=== PATIENT | female | born 1985 | race Caucasian/White ===

== ENCOUNTER 2019-11-09 23:47 | Emergency (ER) | payer BC ==
--- NOTE | 2019-11-10 00:10 | EDM.PDOC ---
ED HPI GENERAL MEDICAL PROBLEM - General Chief Complaint: Abdominal Pain Stated Complaint: POST OP PAIN Time Seen by Provider: 11/10/19 00:05 Source of Information: Reports: Patient, Family History Limitations: Reports: No Limitations - History of Present Illness INITIAL COMMENTS - FREE TEXT/NARRATIVE: 34-year-old female with abdominal pain 48 hours after laparoscopic surgery for endometriosis. She also ran some low-grade fevers this evening so called her surgeon and he recommended she come in to be seen. She felt like she was doing better but is having increased symptoms since removing the scopolamine patch from behind her ear this morning. No nausea or vomiting but is not tolerating movement such as getting in and out of the truck or up and down off the bathroom toilet as much as she was yesterday. 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 Denies: Chills HEENT: Reports: No Symptoms Respiratory: Denies: Shortness of Breath Cardiovascular: Denies: Chest Pain GI/Abdominal: Reports: Abdominal Pain. Denies: Constipation, Nausea, Vomiting Skin: Denies: Bruising Neurological: Denies: Headache ED EXAM, GI/ABD - Physical Exam Exam: See Below Exam Limited By: No Limitations General Appearance: Alert, No Apparent Distress (Looks uncomfortable but not distressed) Eyes: Bilateral: Normal Appearance Respiratory/Chest: No Respiratory Distress, Lungs Clear Cardiovascular: Regular Rate, Rhythm, Tachycardia GI/Abdominal Exam: Normal Bowel Sounds, Soft, Other (Surgical incisions look excellent) Course - Vital Signs Last Recorded V/S: Last Vital Signs Temp 97.5 F 11/10/19 00:00 Pulse 117 H 11/10/19 00:00 Resp 18 11/10/19 00:00 BP 135/68 11/10/19 00:00 Pulse Ox 99 11/10/19 00:00 - Orders/Labs/Meds Labs: Laboratory Tests 11/10/19 11/10/19 Range/Units 00:40 00:40 WBC 17.0 H (4.5-11.0) K/uL RBC 3.76 (3.30-5.50) M/uL Hgb 10.7 L (12.0-15.0) g/dL Hct 33.0 L (36.0-48.0) % MCV 88 (80-98) fL MCH 29 (27-31) pg MCHC 32 (32-36) % Plt Count 382 (150-400) K/uL Neut % (Auto) 90 H (36-66) % Lymph % (Auto) 4 L (24-44) % [place] % (Auto) 4 (2-6) % Eos % (Auto) 1 L (2-4) % Baso % (Auto) 0 (0-1) % Sodium 126 L (140-148) mmol/L Potassium 3.3 L (3.6-5.2) mmol/L Chloride 101 (100-108) mmol/L Carbon Dioxide 24 (21-32) mmol/L Anion Gap 4.3 L (5.0-14.0) mmol/L BUN 12 (7-18) mg/dL Creatinine 0.8 (0.6-1.0) mg/dL Est Cr Clr Drug Dosing 89.16 mL/min Estimated GFR (MDRD) > 60 (>60) Glucose 137 H (74-106) mg/dL Calcium 8.4 L (8.5-10.1) mg/dL Meds: Medications Discontinued Medications Generic Name Dose Route Start Last Admin Trade Name Freq PRN Reason Stop Dose Admin Hydromorphone HCl 1 mg 11/10/19 00:28 11/10/19 00:32 Dilaudid IM 11/10/19 00:29 1 mg ONETIME ONE Administration - Re-Assessments/Exams Free Text/Narrative Re-Assessment/Exam: 11/10/19 02:21 CBC and BMP were obtained and the patient was given 1 mg of IM Dilaudid. Temperature was followed over the course of an hour and a half in the emergency room and remained normal. White count is 17,000 which will be used his baseline if her fever recurs. She felt much better after the Dilaudid and was discharged. It is too early to be concerned about an abscess or something we can find on imaging, and she is feeling well enough that she wants to give it 24 more hours. Departure - Departure Time of Disposition: 01:18 Disposition: Home, Self-Care 01 Clinical Impression: Abdominal pain Qualifiers: Abdominal location: generalized Qualified Code(s): R10.84 - Generalized abdominal pain - Discharge Information Instructions: Abdominal Pain, Adult, [id number] Referrals: PCP,None [Primary Care Provider] - Forms: ED Department Discharge Care Plan Goals: Continue current medications, stay active, and recheck tomorrow if fevers recur or you develop more pain. Sepsis Event Note (ED) - Evaluation Sepsis Screening Result: No Definite Risk - Focused Exam Vital Signs: Vital Signs Temp Pulse Resp BP Pulse Ox 11/10/19 00:00 97.5 F 117 H 18 135/68 99
[2019-11-10] MEDS ORDERED: HYDROmorphone 1 MG/ML Syringe IM ONE (00:28)
== END 2019-11-10 01:18 | disposition home or self-care (01) ==
LOC: JP.ED 23:47
DX: R10.84 Generalized abdominal pain (principal); Z79.899 Other long term (current) drug therapy
CPT/HCPCS: 36415; 80048; 85025; 96372; 99284; J1170

== ENCOUNTER 2021-07-30 05:45 | Day surgery (SDC) | payer BC ==
[2021-07-30] MEDS ORDERED: Acetaminophen 500 MG Tab PO ONE (05:46)
[2021-07-30] MEDS ORDERED: Albuterol/Ipratropium 3.0-0.5 MG/3 ML Neb Soln NEB ONE (06:00)
[2021-07-30] MEDS ORDERED: Dextrose 5%-Lactated Ringers 1,000 ML IV SCH (06:00)
[2021-07-30] MEDS ORDERED: Lidocaine 1% with EPINEPHrine 1:100,000 50 ML MDV ONE (06:38)
[2021-07-30] MEDS ORDERED: Bupivacaine 0.5% 50 ML MDV ONE (06:38)
[2021-07-30] MEDS ORDERED: Meropenem 500 MG in Sodium Chloride 0.9% 50 ML IV ONE (07:00)
[2021-07-30] MEDS ORDERED: Midazolam 1 MG/ML 2 ML SDV ONE (07:09)
[2021-07-30] MEDS ORDERED: fentaNYL 100 MCG/2 ML SDV ONE ×3 (07:09→07:28)
[2021-07-30] MEDS ORDERED: Propofol 200 MG/20 ML SDV ONE (07:10)
[2021-07-30] MEDS ORDERED: Dexamethasone 4 MG/ML SDV ONE (07:10)
[2021-07-30] MEDS ORDERED: Ondansetron 4 MG/2 ML SDV ONE (07:10)
[2021-07-30] MEDS ORDERED: Sodium Chloride 0.9% 10 ML ONE (07:25)
[2021-07-30] MEDS ORDERED: Meropenem 500 MG SDV ONE (07:25)
[2021-07-30] MEDS ORDERED: HYDROmorphone 2 MG Tab PO PRN (08:58)
== END 2021-07-30 10:01 | disposition home or self-care (01) ==
LOC: JP.SDS 05:45
PROVIDERS: ATTEND Surgery
DX: L73.2 Hidradenitis suppurativa (principal); J45.909 Unspecified asthma, uncomplicated; K21.9 Gastro-esophageal reflux disease without esophagitis; G43.909 Migraine, unspecified, not intractable, without status migrainosus; F41.9 Anxiety disorder, unspecified; Z79.899 Other long term (current) drug therapy; Z91.040 Latex allergy status
CPT/HCPCS: 36415; 80053; 84703; 85027; 87070; 87075; 87077; 87186; 87205; 88304; 94640; A9270-GY; J1100; J2185; J2250; J2405; J2704; J3010; J3490; J7121; J7620